=== PATIENT | female | born 1990 | race Caucasian/White ===

== ENCOUNTER 2016-08-23 17:52 | Emergency (ER) | payer BC, OTHER ==
[~2016-08-23] VITALS: Ht 154.9 cm; Wt 77.2 kg
[2016-08-23 18:03] VITALS: TEMP 36.6; Ht 154.9 cm; Wt 77.2 kg
[2016-08-23] MEDS ORDERED: SODIUM CHLORIDE 0.9% 1000ML 1,000 ML IV STA (18:17)
[2016-08-23] MEDS ORDERED: DIPH1TAB87 PO (18:44)
[2016-08-23] MEDS ORDERED: PRENTAB26 PO (18:44)
[2016-08-23 18:54] LABS: PREG INTERNAL NEGATIVE QC NEG CLEAR BACKGROUND; PREG INTERNAL POSITIVE QC POS CONTROL LINE
[2016-08-23 18:55] LABS: URINE APPEARANCE CLEAR (CLEAR); URINE BILIRUBIN NEG (NEG); URINE COLOR YELLOW; URINE EPITHELIAL CELL AUTO >30 /lpf (0-5); URINE NITRITE NEG (NEG); URINE PH 7.5 (4.5-7.5); UROBILINOGEN NEG (NEG)
[2016-08-23 18:57] LABS: BASO % 0.4 %; BASO ABS # 0.03 K/uL (0-0.2); COMPLETE YES; EOS % 3.8 %; HEMATOCRIT 40.7 % (37-47); IG% 0.9 %; LYMPH % 35.5 %; MEAN CELL VOLUME 80.8 fL (80-100); MEAN CORPUSCULAR HEMOGLOBIN 25.6 pg (25-34); MEAN CORPUSCULAR HGB CONC 31.7 g/dl (32-36); MONO % 5.3 %; NEUT % 54.1 %; PLATELET COUNT 317 K/uL (130-400); RED BLOOD COUNT 5.04 M/uL (4.2-5.4); WHITE BLOOD COUNT 6.77 K/uL (4.8-10.8)
[2016-08-23 18:58] LABS: MANUAL MICROSCOPIC REQUIRED? NO; REVIEW REQ? NO
[2016-08-23] MEDS ORDERED: OPTIRAY 320 IV PRN (19:15)
[2016-08-23 19:33] LABS: ALT/SGPT 43 U/L (12-78); AST/SGOT 13 U/L (15-37); BLOOD UREA NITROGEN 10 mg/dl (7-18); BUN/CREATININE RATIO 8.9 (10-20); CARBON DIOXIDE 30 mmol/L (21-32); CHLORIDE 105 mmol/L (98-107); GLUCOSE 81 mg/dl (70-99); POTASSIUM 3.8 mmol/L (3.5-5.1); SODIUM 142 mmol/L (136-145)
[2016-08-23 19:35] LABS: ALKALINE PHOSPHATASE 80 U/L (45-117)
--- NOTE | 2016-08-23 21:06 | DIAGNOSTIC IMAGING REPORT ---
CT SCAN OF THE ABDOMEN AND PELVIS WITHOUT IV CONTRAST CLINICAL HISTORY: Right lower quadrant abdominal pain. Reported history of section 5 weeks ago. COMPARISON STUDY: No priors. TECHNIQUE: CT scan of the abdomen and pelvis is performed from the lung bases to the proximal femora. Images are reviewed in the axial, sagittal, and coronal planes. IV contrast was not administered for this examination as per the referring clinician. Note that the examination was performed in significantly suboptimal fashion without IV contrast. Oral contrast was utilized. Automated dose control exposure was utilized. CT DOSE: 439.46 mGy.cm FINDINGS: Lung bases: The heart is normal in size and without pericardial effusion. The lung bases are clear. Liver: The unenhanced liver is enlarged, measuring 20 cm in length. The liver demonstrates diffusely diminished attenuation consistent with mild hepatic steatosis. Fatty sparing is observed adjacent to gallbladder fossa. There is no intrahepatic biliary ductal dilatation. Gallbladder: Unremarkable. Spleen: Normal in size and attenuation. Pancreas: Unremarkable. Adrenal glands: Unremarkable. Kidneys: The unenhanced kidneys are normal in size and without hydronephrosis. There are no renal calculi identified. There is no evidence of contour deforming renal mass lesion. Abdominal vasculature: The abdominal aorta is normal in course and caliber. Bowel: The small bowel and colon are normal in course and caliber. There is moderate colonic fecal retention. The appendix is well-visualized and normal. Peritoneum: There is no intraperitoneal free air or abdominal ascites. There is a fat-containing umbilical hernia. Lymphadenopathy: None. Pelvic viscera: The uterus appears mildly enlarged and heterogeneous, likely related to recent gestation. There are bilateral ovarian follicles. The bladder is normal as visualized. There is trace free fluid in the cul-de-sac. Skeletal structures: No lytic or blastic lesions are seen. A bone island is incidentally noted in the left sacral ala. IMPRESSION: 1. Suboptimal examination without IV contrast. 2. There are no acute infectious or inflammatory findings in the abdomen or pelvis. 3. The uterus is mildly enlarged and heterogeneous, likely related to recent gestation. 4. Hepatomegaly and mild steatosis. 5. There is trace and likely physiologic free fluid in the cul-de-sac. 6. Mild to moderate colonic fecal retention. Electronically signed by: South Jin M.D. 08/23/2016 9:05 PM Dictated Date/Time: 08/23/2016 8:59 PM
[2016-08-23 21:37] VITALS: BP 125/77; PULSE 64; O2SAT 99
--- NOTE | 2016-08-24 01:16 | EMERGENCY ROOM VISIT NOTE ---
History Report prepared by Negro: Kathleen Maciel Under the Supervision of: Dr. Jarrod Walter M.D. First contact with patient: 18:07 Chief Complaint: FLANK PAIN Stated Complaint: 5 WEEKS ,RIGHT SIDE PAIN History of Present Illness The patient is a 25 year old female who presents to the Emergency Room with complaints of worsening right flank pain that started yesterday. The pain radiates into her right shoulder blade and her lower back. The pain does not radiate into her abdomen. She denies any abdominal pain. She describes the pain as a stabbing sensation when she walks, but dull when she is sitting. The patient had a section done 5 weeks ago and her [employer] recommended coming in because the pain was not subsiding. She states that the wound from the procedure is healing well. She was prescribed oxycodone after the surgery, but she was not experienced any pain so she has not taken any. The patient states that she is no longer experiencing vaginal bleeding from the procedure. She is also experiencing a loss of appetite. The patient states that she experienced a fever of 102 last week that subsided the next day then came back the day after. She states that she did not experience any other symptoms with the fever and she has not experienced a fever since then. She denies chest pain , shortness of breath, vomiting, lower extremity pain or swelling, trouble urinating, hematuria, and diarrhea. The patient still has her appendix. She denies any history of kidney stones or blood clots. The patient has a family history of blood clots. The patient's father states that the patient's grandfather of a blood clot in his neck and the cause of the blood clot was never identified. The patient adds that she is from [facility], but she is in the area visiting. Source of History: patient Onset: yesterday Position: other (right flank) Quality: stabbing (with walking), dull (when sitting) Timing: worsening Associated Symptoms: + back pain (lower and in right shoulder blade), + fevers (last week, resolved), No SOB, No abdominal pain, No chest pain, No diarrhea, No urinary symptoms (trouble urinating, hematuria), No vomiting Note: loss of appetite, no vaginal bleeding, no lower extremity pain or swelling Review of Systems See HPI for pertinent positives & negatives. A total of 10 systems reviewed and were otherwise negative. Past Medical & Surgical Surgical Problems: (1) History of section Family History Blood clots Social History Smoking Status: Never Smoker Housing Status: lives with family Current/Historical Medications Scheduled Diphenhydramine Hcl (Benadryl Allergy), 50 MG PO PRN Multivit/Min/Iron/Fol Ac/Pren ( Vitamin), 1 TAB PO DAILY Allergies Coded Allergies: Shellfish (Verified Allergy, Severe, ANAPHYLAXIS, 08/23/16) Latex (Verified Allergy, Intermediate, contact dermatitis, 08/23/16) Physical Exam Vital Signs Date Time Temp Pulse Resp B/P Pulse Ox O2 Delivery O2 Flow Rate FiO2 08/23/16 21:37 64 18 125/77 99 Room Air 08/23/16 19:48 60 18 116/86 100 Room Air 08/23/16 18:03 36.6 66 20 112/71 98 Room Air Physical Exam Constitutional: Vital signs reviewed. Eyes: Pupils are equal round reactive to light. Conjunctiva are noninjected. ENT: Pharynx is clear without erythema or exudate. Mucous membranes are moist. Neck supple without meningeal signs. Respiratory: Clear to auscultation bilaterally. Breath sounds are equal bilaterally. Cardiovascular: Regular rate and rhythm. No rubs or gallops. GI: Soft and nondistended. Right lower quadrant tenderness. No rebound. Bowel sounds are present. Musculoskeletal: No peripheral edema. No lower extremity tenderness. Integumentary: No cyanosis. Neurological: The patient is awake and alert. No focal deficits. Psychiatric: Normal affect. Medical Decision & Procedures ER Provider Diagnostic Interpretation: CT results as stated below per my review and radiologist interpretation. CT SCAN OF THE ABDOMEN AND PELVIS WITHOUT IV CONTRAST FINDINGS: Lung bases: The heart is normal in size and without pericardial effusion. The lung bases are clear. Liver: The unenhanced liver is enlarged, measuring 20 cm in length. The liver demonstrates diffusely diminished attenuation consistent with mild hepatic steatosis. Fatty sparing is observed adjacent to gallbladder fossa. There is no intrahepatic biliary ductal dilatation. Gallbladder: Unremarkable. Spleen: Normal in size and attenuation. Pancreas: Unremarkable. Adrenal glands: Unremarkable. Kidneys: The unenhanced kidneys are normal in size and without hydronephrosis. There are no renal calculi identified. There is no evidence of contour deforming renal mass lesion. Abdominal vasculature: The abdominal aorta is normal in course and caliber. Bowel: The small bowel and colon are normal in course and caliber. There is moderate colonic fecal retention. The appendix is well-visualized and normal. Peritoneum: There is no intraperitoneal free air or abdominal ascites. There is a fat-containing umbilical hernia. Lymphadenopathy: None. Pelvic viscera: The uterus appears mildly enlarged and heterogeneous, likely related to recent gestation. There are bilateral ovarian follicles. The bladder is normal as visualized. There is trace free fluid in the cul-de-sac. Skeletal structures: No lytic or blastic lesions are seen. A bone island is incidentally noted in the left sacral ala. IMPRESSION: 1. Suboptimal examination without IV contrast. 2. There are no acute infectious or inflammatory findings in the abdomen or pelvis. 3. The uterus is mildly enlarged and heterogeneous, likely related to recent gestation. 4. Hepatomegaly and mild steatosis. 5. There is trace and likely physiologic free fluid in the cul-de-sac. 6. Mild to moderate colonic fecal retention. Electronically signed by: South Jin M.D. 08/23/2016 9:05 PM Dictated Date/Time: 08/23/2016 8:59 PM Laboratory Results 08/23/16 18:31 Red Blood Count 5.04, Mean Corpuscular Volume 80.8, Mean Corpuscular Hemoglobin 25.6, Mean Corpuscular Hemoglobin Concent 31.7, Mean Platelet Volume 10.0, Neutrophils (%) (Auto) 54.1, Lymphocytes (%) (Auto) 35.5, Monocytes (%) (Auto) 5.3, Eosinophils (%) (Auto) 3.8, Basophils (%) (Auto) 0.4, Neutrophils # (Auto) 3.66, Lymphocytes # (Auto) 2.40, Monocytes # (Auto) 0.36, Eosinophils # (Auto) 0.26, Basophils # (Auto) 0.03 08/23/16 18:31 Test 08/23/16 18:31 08/23/16 18:34 White Blood Count 6.77 K/uL (4.8-10.8) Red Blood Count 5.04 M/uL (4.2-5.4) Hemoglobin 12.9 g/dL (12.0-16.0) Hematocrit 40.7 % (37-47) Mean Corpuscular Volume 80.8 fL (80-100) Mean Corpuscular Hemoglobin 25.6 pg (25-34) Mean Corpuscular Hemoglobin Concent 31.7 g/dl (32-36) Platelet Count 317 K/uL (130-400) Mean Platelet Volume 10.0 fL (7.4-10.4) Neutrophils (%) (Auto) 54.1 % Lymphocytes (%) (Auto) 35.5 % Monocytes (%) (Auto) 5.3 % Eosinophils (%) (Auto) 3.8 % Basophils (%) (Auto) 0.4 % Neutrophils # (Auto) 3.66 K/uL (1.4-6.5) Lymphocytes # (Auto) 2.40 K/uL (1.2-3.4) Monocytes # (Auto) 0.36 K/uL (0.11-0.59) Eosinophils # (Auto) 0.26 K/uL (0-0.5) Basophils # (Auto) 0.03 K/uL (0-0.2) RDW Standard Deviation 43.0 fL (36.4-46.3) RDW Coefficient of Variation 14.8 % (11.5-14.5) Immature Granulocyte % (Auto) 0.9 % Immature Granulocyte # (Auto) 0.06 K/uL (0.00-0.02) Anion Gap 7.0 mmol/L (3-11) Est Creatinine Clear Calc Drug Dose 74.8 ml/min Estimated GFR () 82.0 Estimated GFR (Non- 70.7 BUN/Creatinine Ratio 8.9 (10-20) Calcium Level 9.0 mg/dl (8.5-10.1) Total Bilirubin 0.5 mg/dl (0.2-1) Direct Bilirubin < 0.1 mg/dl (0-0.2) Aspartate Amino Transf (AST/SGOT) 13 U/L (15-37) Alanine Aminotransferase (ALT/SGPT) 43 U/L (12-78) Alkaline Phosphatase 80 U/L (45-117) Total Protein 7.6 gm/dl (6.4-8.2) Albumin 3.7 gm/dl (3.4-5.0) Lipase 145 U/L (73-393) Urine Color YELLOW Urine Appearance CLEAR (CLEAR) Urine pH 7.5 (4.5-7.5) Urine Specific [place] 1.020 (1.000-1.030) Urine Protein NEG (NEG) Urine Glucose (UA) NEG (NEG) Urine Ketones NEG (NEG) Urine Occult Blood NEG (NEG) Urine Nitrite NEG (NEG) Urine Bilirubin NEG (NEG) Urine Urobilinogen NEG (NEG) Urine Leukocyte Esterase TRACE (NEG) Urine WBC (Auto) 1-5 /hpf (0-5) Urine RBC (Auto) 0-4 /hpf (0-4) Urine Hyaline Casts (Auto) 0 /lpf (0-5) Urine Epithelial Cells (Auto) >30 /lpf (0-5) Urine Bacteria (Auto) NEG (NEG) Urine Test NEG (NEG) Laboratory results as reviewed by me. Medications Administered Medications (Trade) Dose Ordered Sig/Ezra Route Start Time Stop Time Status Last Admin Dose Admin Sodium Chloride (Nss 1000ml) 1,000 ml @ 999 mls/hr Q1H1M STAT IV 08/23/16 18:17 08/23/16 19:17 DC 08/23/16 18:17 999 MLS/HR ED Course 1809: The patient was evaluated in room C11. A complete history and physical exam was performed. 1816: Ordered Sodium Chloride 1000 ml @ 999 mls/hr IV 1954: I discussed the patient's lab results with her and her father. She is waiting for her CT scan. 2121: Upon reevaluation, the patient appeared to have improvement of her symptoms. I discussed tonight's findings with her. She continues to deny any chest pain or shortness of breath. She states that her pain is in her right lower abdomen where she is still somewhat tender on exam. She is going to follow -up on Thursday with her PCP and will return with any worsening of her symptoms. She verbalized agreement of the treatment plan. She was discharged home. Medical Decision This is a 25-year-old female who presents with right-sided flank pain. Differential diagnoses considered include acute appendicitis, abscess, perforation, cholelithiasis, pancreatitis, pyelonephritis, pulmonary embolism. I did perform a limited focused review of portions of the patient's old chart on the electronic medical record. The patient has had no prior visits to this hospital. Medication Reconciliation: I attest that I have personally reviewed the patient' s current medication list. Blood Pressure Screening: Patient was found to have normal blood pressure on screening and does not require follow-up. I did evaluate the patient as noted above. Patient is presenting with right- sided flank pain. She does not have pain in her chest or her upper back. She denies any shortness of breath. She is tender in the right lower and mid abdomen. IV access was established. She did not want any pain medicine. She was given normal saline IV. I did order and personally review the patient's urine analysis as described above. I did order and review the patient's blood work as noted in the electronic medical record. Her white blood cell count is not elevated. LFTs and lipase are unremarkable. I did order a CT of the abdomen and pelvis. I did review the images myself as well as the radiology report as described above. There is no evidence of acute appendicitis or gallstones. No kidney stones are noted. She did have some fecal retention. I did discuss the test results with the patient. At this time because of her pain is unclear. She was advised to follow closely with her doctor for further evaluation of her symptoms and to return for any worsening symptoms. She was discharged in good condition. Impression Primary Impression: Right sided abdominal pain Scribe Attestation The scribe's documentation has been prepared under my direct and personally reviewed by me in its entirety. I confirm that the note above accurately reflects all work, treatment, procedures, and medical decision making performed by me. Departure Information Dispostion Home / Self-Care Referrals No Doctor, Assigned (PCP) Forms HOME CARE DOCUMENTATION FORM, IMPORTANT VISIT INFORMATION Patient Instructions ED Abd Pain Unkn Cause Fem, My [facility] Additional Instructions You have been examined and treated today on an emergency basis only. This is not a substitute for, or an effort to provide, complete comprehensive medical care. It is impossible to recognize and treat all injuries or illnesses in a single emergency department visit. It is therefore important that you follow up closely with your physician. Call as soon as possible for an appointment. Return for worsening symptoms or if you develop fever, vomiting, chest pain, shortness of breath or any other concerning symptoms.
== END 2016-08-23 21:40 | disposition home or self-care (01) ==
LOC: C.EDB 17:53 → C.EDC 21:40
DX: R10.31 Right lower quadrant pain (principal); M54.5 Low back pain; Z83.2 Family history of diseases of the blood and blood-forming organs and certain disorders involving the immune mechanism